=== PATIENT | female | born 1985 | race Caucasian/White ===

== ENCOUNTER 2020-07-10 10:53 | Emergency (ER) | payer OTHER, SELFPAY ==
[~2020-07-10] VITALS: Ht 165.1 cm; Wt 90.7 kg
[2020-07-10 12:37] VITALS: BP 122/95; Ht 165.1 cm; Wt 90.7 kg
== END 2020-07-10 13:10 | disposition home or self-care (01) ==
LOC: ED 10:53
DX: U07.1 COVID-19 (principal)
CPT/HCPCS: U0003

== ENCOUNTER 2020-08-01 12:10 | Emergency (ER) | payer OTHER, SELFPAY ==
[~2020-08-01] VITALS: Ht 162.6 cm; Wt 91.6 kg
[2020-08-01 12:27] VITALS: Ht 162.6 cm; Wt 91.6 kg
[2020-08-01] MEDS ORDERED: BACLOFEN10 MG PO (12:50)
[2020-08-01] MEDS ORDERED: ULTRAM50 MG PO (12:50)
[2020-08-01] MEDS ORDERED: IBU600 M2 PO (12:50)
[2020-08-01 13:05] VITALS: BP 128/86
== END 2020-08-01 13:05 | disposition home or self-care (01) ==
LOC: ED 12:10
DX: S06.0X0A Concussion without loss of consciousness, initial encounter (principal); S16.1XXA Strain of muscle, fascia and tendon at neck level, initial encounter; S29.019A Strain of muscle and tendon of unspecified wall of thorax, initial encounter; V49.49XA Driver injured in collision with other motor vehicles in traffic accident, initial encounter; Y93.I9 Activity, other involving external motion; Y92.413 State road as the place of occurrence of the external cause; Y99.8 Other external cause status